=== PATIENT | male | born 1965 | race Caucasian/White ===

== ENCOUNTER 2017-07-26 16:06 | Emergency (ER) | payer OTHER ==
[~2017-07-26] VITALS: Ht 167.6 cm; Wt 104.3 kg
--- NOTE | ~2017-07-26 | EKG ---
[place], [place] ELECTROCARDIOGRAM REPORT NAME: OLIVIA PANDYA UNIT #: [id number] ROOM: DOCTOR: LEXI GARCIA MD BIRTHDATE: [birth year] DOS: 07/26/2017 TIME: 1610 hours. FINDINGS: 1. Normal sinus rhythm at 82 beats per minute. 2. 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 3. An abnormal ECG. 4. No previous tracing is available for comparison. LEXI GARCIA MD CM:EKGRPT:ELECTROCARDIOGRAM REPORT [id number] 1826 LEXI GARCIA MD
[2017-07-26 16:31] LABS: HEMATOCRIT 44.5 % (42.0-52.0); HEMOGLOBIN 14.9 g/dl (14.0-18.0); MEAN CELL VOLUME 92.9 fl (80.0-94.0); MEAN CORPUSCULAR HGB 31.1 pg (27.0-31.0); MEAN CORPUSCULAR HGB CONC 33.5 g/dl (33.0-37.0); MEAN PLATELET VOLUME 10.1 fl (9.6-12.3); PLATELET COUNT AUTOMATED 261 10*3/uL (130-400); RED BLOOD COUNT 4.79 10*6/uL (4.50-5.90); WHITE BLOOD COUNT 10.7 10*3/uL (4.8-10.8)
[2017-07-26 16:40] LABS: ACT PARTIAL THROMBO TIME 18.9 SECONDS (20.8-31.5)
[2017-07-26 16:50] LABS: ATYPICAL LYMPHS 2 % (0-0); BASOPHILS 2 % (0-1); PLATELET SUFFICIENCY NORMAL (NORMAL); POLYCHROMASIA SLIGHT; TOTAL CELLS COUNTED 100 #CELLS
[2017-07-26 16:51] LABS: ALBUMIN 3.4 gm/dl (3.1-4.5); ALKALINE PHOSPHATASE 53 U/L (45-117); BUN 17 mg/dl (7-24); CHLORIDE 104 mmol/L (98-107); CREATININE 1.03 mg/dL (0.70-1.30); POTASSIUM 4.1 mmol/L (3.5-5.1); SGOT/AST 52 IU/L (3-35); SGPT/ALT 76 U/L (12-78); SODIUM 138 mmol/L (136-145)
[2017-07-26 16:55] LABS: TROPONIN I < 0.015 ng/ml (<0.045)
== END 2017-07-26 18:15 | disposition left against medical advice (07) ==
LOC: ED 16:06
PROVIDERS: Student in an Organized Health Care Education/Training Program
DX: S09.90XA Unspecified injury of head, initial encounter (principal); R07.89 Other chest pain; M25.512 Pain in left shoulder; M54.2 Cervicalgia; I25.10 Atherosclerotic heart disease of native coronary artery without angina pectoris; I10 Essential (primary) hypertension; E78.00 Pure hypercholesterolemia, unspecified; Z95.1 Presence of aortocoronary bypass graft; Z79.01 Long term (current) use of anticoagulants; Z79.82 Long term (current) use of aspirin; W01.198A Fall on same level from slipping, tripping and stumbling with subsequent striking against other object, initial encounter; Y93.89 Activity, other specified; Y92.89 Other specified places as the place of occurrence of the external cause; Y99.9 Unspecified external cause status

== ENCOUNTER 2017-08-04 17:21 | Emergency (ER) | payer OTHER ==
[~2017-08-04] VITALS: Wt 104.3 kg
[2017-08-04 17:37] LABS: BASO # 0.1 10*3/uL (0.0-0.1); EOS # 0.1 10*3/uL (0.0-0.4); HEMOGLOBIN 15.8 g/dl (14.0-18.0); LYMPH # 1.8 10*3/uL (1.3-4.4); LYMPH % 14.8 % (27.0-41.0); MEAN CELL VOLUME 92.2 fl (80.0-94.0); MEAN CORPUSCULAR HGB 31.7 pg (27.0-31.0); MEAN CORPUSCULAR HGB CONC 34.3 g/dl (33.0-37.0); MEAN PLATELET VOLUME 10.1 fl (9.6-12.3); MONO # 1.2 10*3/uL (0.1-1.0); MONO % 9.5 % (3.0-9.0); NEUT # 8.8 10*3/uL (2.3-7.9); NEUT % 72.1 % (47.0-73.0); PLATELET COUNT AUTOMATED 291 10*3/uL (130-400); RED BLOOD COUNT 4.99 10*6/uL (4.50-5.90); RED CELL DISTRI WIDTH 14.5 % (0-14.5); WHITE BLOOD COUNT 12.2 10*3/uL (4.8-10.8)
[2017-08-04 17:54] LABS: ALBUMIN 3.8 gm/dl (3.1-4.5); ALKALINE PHOSPHATASE 55 U/L (45-117); BUN 21 mg/dl (7-24); CHLORIDE 103 mmol/L (98-107); POTASSIUM 4.3 mmol/L (3.5-5.1); SGOT/AST 49 IU/L (3-35); SGPT/ALT 78 U/L (12-78); SODIUM 137 mmol/L (136-145); TOTAL PROTEIN 7.3 gm/dL (6.4-8.2)
[2017-08-04 17:56] LABS: TROPONIN I < 0.015 ng/ml (<0.045)
[2017-08-04] MEDS ORDERED: NORCO 5-325 TA1 EACH PO (19:41)
== END 2017-08-04 19:48 | disposition home or self-care (01) ==
LOC: ED 17:21
PROVIDERS: Emergency Medicine
DX: S22.42XA Multiple fractures of ribs, left side, initial encounter for closed fracture (principal); V80.010A Animal-rider injured by fall from or being thrown from horse in noncollision accident, initial encounter; Y93.52 Activity, horseback riding; Y92.89 Other specified places as the place of occurrence of the external cause; Y99.8 Other external cause status

== ENCOUNTER 2017-09-19 13:43 | Emergency (ER) | payer OTHER ==
[~2017-09-19] VITALS: Ht 167.6 cm; Wt 102.1 kg
[~2017-09-19 13:43] MED LIST changes: -CHLORZOXAZONE500 M2 PO; -PREDNISONE10 MG PO
[2017-09-19] MEDS ORDERED: PREDNISONE10 MG PO (15:35)
[2017-09-19] MEDS ORDERED: CHLORZOXAZONE500 M2 PO (15:35)
== END 2017-09-19 16:14 | disposition home or self-care (01) ==
LOC: ED 13:43
DX: M54.5 Low back pain (principal); R03.0 Elevated blood-pressure reading, without diagnosis of hypertension

== ENCOUNTER → 2017-09-19 | Outpatient (CLI) | payer OTHER ==
[~2017-09-19] MED LIST: CHLORZOXAZONE500 M2 PO; NORCO 5-325 TA1 EACH PO; PREDNISONE10 MG PO
[2017-09-19 13:33] LABS: BASO # 0.1 10*3/uL (0.0-0.1); BASO % 0.6 % (0.0-1.0); EOS # 0.2 10*3/uL (0.0-0.4); HEMATOCRIT 44.5 % (42.0-52.0); HEMOGLOBIN 15.4 g/dl (14.0-18.0); LYMPH # 1.1 10*3/uL (1.3-4.4); LYMPH % 11.8 % (27.0-41.0); MEAN CELL VOLUME 91.2 fl (80.0-94.0); MEAN CORPUSCULAR HGB 31.6 pg (27.0-31.0); MEAN CORPUSCULAR HGB CONC 34.6 g/dl (33.0-37.0); MEAN PLATELET VOLUME 10.4 fl (9.6-12.3); MONO # 0.9 10*3/uL (0.1-1.0); MONO % 9.6 % (3.0-9.0); NEUT # 7.3 10*3/uL (2.3-7.9); NEUT % 75.5 % (47.0-73.0); PLATELET COUNT AUTOMATED 207 10*3/uL (130-400); RED BLOOD COUNT 4.88 10*6/uL (4.50-5.90); RED CELL DISTRI WIDTH 13.9 % (0-14.5); WHITE BLOOD COUNT 9.6 10*3/uL (4.8-10.8)
[2017-09-19 14:03] LABS: ALBUMIN 4.1 gm/dl (3.1-4.5); ALKALINE PHOSPHATASE 55 U/L (45-117); BUN 21 mg/dl (7-24); CHLORIDE 107 mmol/L (98-107); CHOLESTEROL 163 mg/dL (<200); CREATININE 1.01 mg/dL (0.70-1.30); POTASSIUM 4.2 mmol/L (3.5-5.1); SGOT/AST 37 IU/L (3-35); SGPT/ALT 45 U/L (12-78); SODIUM 140 mmol/L (136-145); TOTAL PROTEIN 7.5 gm/dL (6.4-8.2); TRIGLYCERIDES 76 mg/dl (<150); VLDL CHOLESTEROL 15 mg/dL (6-40)
[2017-09-19 14:11] LABS: HDL CHOLESTEROL 56 mg/dl (40-60); LDL CHOLESTEROL 92 mg/dL (9-159)
== END | disposition home or self-care (01) ==
LOC: LAB 13:09
DX: Z12.5 Encounter for screening for malignant neoplasm of prostate (principal); E78.2 Mixed hyperlipidemia; R53.83 Other fatigue; R73.09 Other abnormal glucose

== ENCOUNTER 2017-11-22 18:06 | Emergency (ER) | payer OTHER ==
[~2017-11-22] VITALS: Ht 167.6 cm; Wt 102.1 kg
[~2017-11-22 18:06] MED LIST changes: +CHLORZOXAZONE500 M2 PO; +PREDNISONE10 MG PO
[2017-11-22] MEDS ORDERED: CEPHALEXIN500 M1 PO (18:35)
[2017-11-22] MEDS ORDERED: IBUPROFEN600 MG PO (18:35)
== END 2017-11-22 19:37 | disposition home or self-care (01) ==
LOC: ED 18:06
DX: S93.402A Sprain of unspecified ligament of left ankle, initial encounter (principal); S80.12XA Contusion of left lower leg, initial encounter; L03.116 Cellulitis of left lower limb; Z79.899 Other long term (current) drug therapy; W01.0XXA Fall on same level from slipping, tripping and stumbling without subsequent striking against object, initial encounter; Y93.89 Activity, other specified; Y92.89 Other specified places as the place of occurrence of the external cause; Y99.8 Other external cause status

== ENCOUNTER 2017-12-23 13:28 | Emergency (ER) | payer OTHER ==
[~2017-12-23] VITALS: Ht 167.6 cm; Wt 102.1 kg
[~2017-12-23 13:28] MED LIST changes: +CEPHALEXIN500 M1 PO; +IBUPROFEN600 MG PO
== END 2017-12-23 14:56 | disposition home or self-care (01) ==
LOC: ED 13:28
DX: S40.021A Contusion of right upper arm, initial encounter (principal); M79.89 Other specified soft tissue disorders; G89.29 Other chronic pain; Z79.899 Other long term (current) drug therapy; V80.010A Animal-rider injured by fall from or being thrown from horse in noncollision accident, initial encounter; Y93.89 Activity, other specified; Y92.89 Other specified places as the place of occurrence of the external cause; Y99.8 Other external cause status

== ENCOUNTER 2018-08-18 23:25 | Emergency (ER) | payer MEDICARE ==
[~2018-08-18] VITALS: Ht 167.6 cm; Wt 104.3 kg
[2018-08-19 00:29] LABS: BILIRUBIN NEGATIVE (NEGATIVE); BLOOD NEGATIVE (NEGATIVE); CLARITY CLEAR (CLEAR); COLOR YELLOW (YELLOW); GLUCOSE NEGATIVE (NEGATIVE); KETONE NEGATIVE (NEGATIVE); LEUKO ESTERASE NEGATIVE (NEGATIVE); NITRITE NEGATIVE (NEGATIVE); UROBILINOGEN 0.2 E.U./dl (0.2-1.0)
[2018-08-19 00:36] LABS: URINE AMPHETAMINES < 1000 (1000ng/ml); URINE BARBITURATES < 200 (200ng/ml); URINE BENZODIAZEPINES > 200 (200ng/ml); URINE CANNABINOIDS (THC) < 50 (50ng/ml); URINE COCAINE < 300 (300ng/ml); URINE METHADONE < 300 (300ng/ml); URINE OPIATES < 300 (300ng/ml)
[2018-08-19 00:39] LABS: URINE PHENCYCLIDINE < 25 (25ng/ml)
[2018-08-19 00:42] LABS: RBC 0-2 rbc/hpf (0-2)
[2018-08-19] MEDS ORDERED: MEDROL DOSEPAK4 MG PO (02:03)
[2018-08-19] MEDS ORDERED: NORCO 5-325 TA1 EACH PO (02:03)
== END 2018-08-19 02:42 | disposition home or self-care (01) ==
LOC: ED 23:25
PROVIDERS: Physician Assistant
DX: M54.16 Radiculopathy, lumbar region (principal); M54.6 Pain in thoracic spine; R20.2 Paresthesia of skin; R20.0 Anesthesia of skin; M79.604 Pain in right leg; W18.39XA Other fall on same level, initial encounter; Y93.01 Activity, walking, marching and hiking; Y92.89 Other specified places as the place of occurrence of the external cause; Y99.8 Other external cause status

== ENCOUNTER 2018-08-26 22:00 | Emergency (ER) | payer MEDICARE ==
[~2018-08-26] VITALS: Ht 167.6 cm; Wt 104.3 kg
--- NOTE | ~2018-08-26 | EKG ---
[place], [place] ELECTROCARDIOGRAM REPORT NAME: OLIVIA PANDYA UNIT #: [id number] ROOM: DOCTOR: [facility] DRAFT REPORT BIRTHDATE: [birth year] [facility] Test Date: 2018-08-26 Test Time: 22:02:46 Pat Name: OLIVIA PANDYA Department: Room: [facility] Gender: M [place]inder: : 1965 Requested By: RICHARD PILLAI Order Number: [id number] Reading MD: Shakira Bird MD Measurements Intervals [place] Rate: 69 P: 19 MT: 163 QRS: -14 QRSD: 105 T: 64 QT: 387 QTc: 415 Interpretive Statements Sinus rhythm Abnormal R-wave progression, late transition Inferior infarct, old Minimal ST elevation, anterolateral leads Electronically Signed On 08-27-2018 7:20:41 PDT by Shakira Bird MD CM:EKGRPT:ELECTROCARDIOGRAM REPORT 01 0720 RICHARD CORBIN DRAFT REPORT RICHARD PILLAI DO
--- NOTE | ~2018-08-26 | EKG ---
[place], [place] ELECTROCARDIOGRAM REPORT NAME: OLIVIA PANDYA UNIT #: [id number] ROOM: DOCTOR: [facility] DRAFT REPORT BIRTHDATE: [birth year] [facility] Test Date: 2018-08-27 Test Time: 00:56:45 Pat Name: OLIVIA PANDYA Department: Room: [facility] [place] Gender: M Technical Support Coordinator: SS RESP : 1965 Requested By: RICHARD PILLAI Order Number: [id number] Reading MD: Shakira Bird MD Measurements Intervals [place] Rate: 63 P: 10 CO: 166 QRS: -13 QRSD: 105 T: 36 QT: 400 QTc: 410 Interpretive Statements Sinus rhythm Inferior infarct, old Minimal ST elevation, anterior leads Electronically Signed On 08-27-2018 7:21:19 PDT by Shakira Bird MD CM:EKGRPT:ELECTROCARDIOGRAM REPORT [id number] 0721 RICHARD CORBIN DRAFT REPORT RICHARD PILLAI DO
[~2018-08-26 22:00] MED LIST changes: +MEDROL DOSEPAK4 MG PO
[2018-08-26 22:06] VITALS: BP 137/85
[2018-08-26 22:51] VITALS: BP 134/81
[2018-08-26 23:12] VITALS: BP 138/75
[2018-08-26] MEDS ORDERED: NEURONTIN800 MG PO (23:26)
[2018-08-26] MEDS ORDERED: XANAX1 MG PO (23:27)
[2018-08-26] MEDS ORDERED: CYCLOBENZAPRINE10 MG PO (23:27)
[2018-08-26] MEDS ORDERED: PLAVIX75 M1 PO (23:27)
[2018-08-26 23:57] LABS: HEMATOCRIT 45.3 % (42.0-52.0); HEMOGLOBIN 14.9 g/dl (14.0-18.0); MEAN CELL VOLUME 83.7 fl (80.0-94.0); MEAN CORPUSCULAR HGB 27.5 pg (27.0-31.0); MEAN CORPUSCULAR HGB CONC 32.9 g/dl (33.0-37.0); MEAN PLATELET VOLUME 9.9 fl (9.6-12.3); PLATELET COUNT AUTOMATED 414 10*3/uL (130-400); RED BLOOD COUNT 5.41 10*6/uL (4.50-5.90); RED CELL DISTRI WIDTH 18.2 % (0-14.5); WHITE BLOOD COUNT 16.9 10*3/uL (4.8-10.8)
[2018-08-27 00:08] LABS: INTERNATIONAL NORM RATIO 1.1 (2.0-3.5)
[2018-08-27 00:14] LABS: ALBUMIN 3.4 gm/dl (3.1-4.5); ALKALINE PHOSPHATASE 45 U/L (45-117); BUN 18 mg/dl (7-24); CHLORIDE 101 mmol/L (98-107); CREATININE 1.13 mg/dL (0.70-1.30); POTASSIUM 4.4 mmol/L (3.5-5.1); SGOT/AST 59 IU/L (3-35); SGPT/ALT 55 U/L (12-78); SODIUM 137 mmol/L (136-145); TOTAL PROTEIN 6.8 gm/dL (6.4-8.2); TROPONIN I 0.023 ng/ml (<0.045)
[2018-08-27 00:19] VITALS: BP 132/72
[2018-08-27 00:21] LABS: BASOPHILS 1 % (0-1); TOTAL CELLS COUNTED 100 #CELLS
[2018-08-27 00:22] LABS: PLATELET SUFFICIENCY NORMAL (NORMAL)
[2018-08-27 00:32] LABS: ACT PARTIAL THROMBO TIME 18.6 SECONDS (20.0-32.1)
[2018-08-27 01:13] LABS: ACETAMINOPHEN (TYLENOL) < 5.0 ug/ml (10-30); ETHYL ALCOHOL < 3.0 mg/dl (<3)
[2018-08-27 01:24] VITALS: BP 140/80
[2018-08-27 01:45] LABS: BILIRUBIN NEGATIVE (NEGATIVE); BLOOD NEGATIVE (NEGATIVE); CLARITY CLEAR (CLEAR); COLOR YELLOW (YELLOW); GLUCOSE NEGATIVE (NEGATIVE); KETONE TRACE (NEGATIVE); LEUKO ESTERASE NEGATIVE (NEGATIVE); NITRITE NEGATIVE (NEGATIVE); SPECIFIC GRAVITY >= 1.030 (1.005-1.030)
[2018-08-27 02:00] LABS: URINE AMPHETAMINES < 1000 (1000ng/ml); URINE BARBITURATES < 200 (200ng/ml); URINE BENZODIAZEPINES > 200 (200ng/ml); URINE CANNABINOIDS (THC) < 50 (50ng/ml); URINE COCAINE < 300 (300ng/ml); URINE METHADONE < 300 (300ng/ml); URINE OPIATES > 300 (300ng/ml)
[2018-08-27 02:01] VITALS: BP 128/66
[2018-08-27 02:03] LABS: URINE PHENCYCLIDINE < 25 (25ng/ml)
[2018-08-27 02:55] LABS: WBC 0-2 wbc/hpf (0-5)
== END 2018-08-27 02:26 | disposition left against medical advice (07) ==
LOC: ED 22:00 → EDHOLD 08-27 00:43 → ED 08-27 02:26
PROVIDERS: Student in an Organized Health Care Education/Training Program
DX: R56.9 Unspecified convulsions (principal); R07.89 Other chest pain; Z79.899 Other long term (current) drug therapy; Z95.1 Presence of aortocoronary bypass graft

== ENCOUNTER 2018-11-15 14:03 | Emergency (ER) | payer MEDICARE, MEDICAID ==
[~2018-11-15] VITALS: Ht 167.6 cm; Wt 104.3 kg
--- NOTE | ~2018-11-15 | EKG ---
[place], [place] ELECTROCARDIOGRAM REPORT NAME: OLIVIA PANDYA UNIT #: [id number] ROOM: DOCTOR: [facility] DRAFT REPORT BIRTHDATE: [birth year] [facility] Test Date: 2018-11-15 Test Time: 14:51:16 Pat Name: OLIVIA PANDYA Department: Room: Gender: It Administrator: [facility] : 1965 Requested By: MORIAH NAVARRO DNP Order Number: [id number] Reading MD: Shakira Bird MD Measurements Intervals [place] Rate: 90 P: 34 MO: 152 QRS: 5 QRSD: 96 T: 80 QT: 328 QTc: 402 Interpretive Statements Sinus rhythm Inferior infarct, old Compared to ECG 08/27/2018 00:56:45 ST (T wave) deviation no longer present Myocardial infarct finding still present Electronically Signed On 11-18-2018 14:22:35 PDT by Shakira Bird MD CM:EKGRPT:ELECTROCARDIOGRAM REPORT [id number] 1422 MORIAH NAVARRO DNP [facility] DRAFT REPORT MORIAH NAVARRO DNP
[~2018-11-15 14:03] MED LIST changes: +CYCLOBENZAPRINE10 MG PO; +NEURONTIN800 MG PO; +PLAVIX75 M1 PO; +XANAX1 MG PO
[2018-11-15 15:00] LABS: BASO # 0.1 10*3/uL (0.0-0.1); BASO % 0.7 % (0.0-1.0); EOS # 0.1 10*3/uL (0.0-0.4); EOS % 1.5 % (1.0-4.0); HEMATOCRIT 41.3 % (42.0-52.0); LYMPH # 1.1 10*3/uL (1.3-4.4); LYMPH % 12.8 % (27.0-41.0); MEAN CORPUSCULAR HGB 28.3 pg (27.0-31.0); MEAN CORPUSCULAR HGB CONC 31.5 g/dl (33.0-37.0); MONO # 0.7 10*3/uL (0.1-1.0); MONO % 7.9 % (3.0-9.0); NEUT # 6.4 10*3/uL (2.3-7.9); PLATELET COUNT AUTOMATED 223 10*3/uL (130-400); RED BLOOD COUNT 4.59 10*6/uL (4.50-5.90); RED CELL DISTRI WIDTH 15.5 % (0-14.5); WHITE BLOOD COUNT 8.5 10*3/uL (4.8-10.8)
[2018-11-15 15:11] LABS: INTERNATIONAL NORM RATIO 0.9 (2.0-3.5)
[2018-11-15 15:17] LABS: ALBUMIN 2.9 gm/dl (3.1-4.5); ALKALINE PHOSPHATASE 44 U/L (45-117); BUN 10 mg/dl (7-24); CHLORIDE 107 mmol/L (98-107); LIPASE 134 U/L (73-393); POTASSIUM 4.1 mmol/L (3.5-5.1); SGOT/AST 29 IU/L (3-35); SGPT/ALT 39 U/L (12-78); SODIUM 140 mmol/L (136-145); TOTAL PROTEIN 6.5 gm/dL (6.4-8.2); TROPONIN I < 0.015 ng/ml (<0.045)
[2018-11-15 15:59] LABS: BILIRUBIN NEGATIVE (NEGATIVE); BLOOD NEGATIVE (NEGATIVE); CLARITY CLEAR (CLEAR); COLOR YELLOW (YELLOW); GLUCOSE NEGATIVE (NEGATIVE); KETONE TRACE (NEGATIVE); LEUKO ESTERASE NEGATIVE (NEGATIVE); NITRITE NEGATIVE (NEGATIVE); PH 6.5 (5.0-9.0)
[2018-11-15 16:07] LABS: RBC 0-2 rbc/hpf (0-2)
[2018-11-15 16:08] LABS: BACTERIA 1+
[2018-11-15] MEDS ORDERED: DOXYCYCLINE100 M3 PO (16:14)
[2018-11-15] MEDS ORDERED: PERCOCET 5-3251 EACH PO (16:14)
== END 2018-11-15 16:21 | disposition home or self-care (01) ==
LOC: ED 14:03
PROVIDERS: Nurse Practitioner Family
DX: G89.18 Other acute postprocedural pain (principal); M79.621 Pain in right upper arm; L03.113 Cellulitis of right upper limb; I25.2 Old myocardial infarction; Z79.899 Other long term (current) drug therapy; Z95.1 Presence of aortocoronary bypass graft

== ENCOUNTER 2018-11-17 00:45 | Emergency (ER) | payer MEDICARE, MEDICAID ==
[~2018-11-17] VITALS: Ht 177.8 cm; Wt 113.4 kg
[~2018-11-17 00:45] MED LIST changes: +DOXYCYCLINE100 M3 PO; +PERCOCET 5-3251 EACH PO
== END 2018-11-17 03:49 | disposition expired ==
LOC: ED 00:45
DX: I46.9 Cardiac arrest, cause unspecified (principal); I25.2 Old myocardial infarction; Z79.2 Long term (current) use of antibiotics; Z79.899 Other long term (current) drug therapy